=== PATIENT | male | born 1985 | race Caucasian/White ===

== ENCOUNTER 2016-08-13 09:28 | Emergency (ER) | payer OTHER ==
[~2016-08-13] VITALS: Ht 188 cm; Wt 131.6 kg
[2016-08-13 10:15] LABS: EOSINOPHIL (%) 1.3 % (0-5); EOSINOPHIL COUNT 0.1 K/uL (0-0.3); IMMATURE GRANULOCYTE (%) 0.1 % (0.0-0.7); IMMATURE GRANULOCYTE COUNT 0.1 K/uL; LYMPHOCYTE COUNT 1.7 K/uL (1.0-2.8); MCH 28.2 PG (29.0-34.0); MCHC 33.8 G/DL (30.0-36.0); MCV 83.6 FL (86-99); MEAN PLAT.VOLUME 10.3 uM^3 (9.0-12.4); MONOCYTE (%) 5.5 % (3-12); MONOCYTE COUNT 0.4 K/uL (0-0.8); NEUTROPHIL (%) 71.7 % (45-76); NEUTROPHIL COUNT 5.7 K/uL (1.8-6.4); PLATELET COUNT 291 K/uL (156-360); RBC DIS.WIDTH-SD 42.4 % (39-53); RED BLOOD COUNT 5.74 M/uL (4.00-5.50); WHITE BLOOD COUNT 7.9 K/uL (4.1-10.2)
[2016-08-13 10:36] LABS: CHLORIDE 108 mEq/L (99-109); POTASSIUM 3.8 mEq/L (3.7-5.4); SODIUM 140 mEq/L (136-147)
[2016-08-13 10:37] LABS: GLUCOSE 107 mg/dL (70-99)
[2016-08-13 10:39] LABS: ANION GAP 9 MEQ/L (2-14)
[2016-08-13 10:41] LABS: GFR ESTIMATE (CALCULATED) > 59 mL/min/
[2016-08-13 10:42] LABS: UREA NITROGEN (BUN) 19 mg/dL (9-23)
[2016-08-13] MEDS ORDERED: LAMOTRIGINE200 MG PO (12:49)
[2016-08-13] MEDS ORDERED: ZOFRAN4 MG PO (13:11)
[2016-08-13 13:27] VITALS: BP 113/78
== END 2016-08-13 13:31 | disposition home or self-care (01) ==
LOC: EME 09:28
PROVIDERS: Emergency Medicine
DX: H81.399 Other peripheral vertigo, unspecified ear (principal)
CPT/HCPCS: 70450; 80048; 85025; 93005; 99281; 99284